=== PATIENT | male | born 1960 | race African-American/Black ===

== ENCOUNTER 2022-03-03 04:36 | Day surgery (SDC) | payer OTHER ==
[2022-02-15 13:40] VITALS: BMI 30.5
[2022-03-03 12:30] VITALS: TEMP 98.7
[2022-03-03 12:57] VITALS: PULSE 70
[2022-03-03 13:06] VITALS: BP 127/89; RESP 20
== END 2022-03-03 13:44 | disposition home or self-care (01) ==
LOC: JASU-ENDO 04:36
PROVIDERS: ATTEND Internal Medicine Gastroenterology
PROC: 0DBP8ZX Excision of Rectum, Via Natural or Artificial Opening Endoscopic, Diagnostic (ICD-10-PCS; principal; 2022-03-03 12:15)
DX: Z12.11 Encounter for screening for malignant neoplasm of colon (principal); D12.8 Benign neoplasm of rectum
CPT/HCPCS: 82962; 88305-TC